=== PATIENT | female | born 1960 | race Caucasian/White ===

== ENCOUNTER 2017-12-12 06:31 | Emergency (ER) | payer OTHER ==
[~2017-12-12] VITALS: Ht 162.6 cm; Wt 68.0 kg
[~2017-12-12 06:31] MED LIST: CALCIUM CITRATE1 TA1 PO; CHROMIUM PO; CIPRO500 MG PO; FLO4 PO; JANUVIA100 M1 PO; LAC PO; LANTUS SOLOS100 U/M1 SC; LORAZEPAM0.5 MG PO; LOVASTATIN20 MG PO; METFORMIN HCL1000 MG PO; NOR10T PO; PRENATAL PLUS1 TA2 PO; PREVACID SOLUTA15 MG PO; PYRIDIUM200 MG PO; TIZANIDINE HCL4 MG PO; TRAMADOL HCL50 MG PO; VITAMIN D32000 I2 PO; ZOLOFT100 MG PO
[2017-12-12 07:24] LABS: BASOPHIL % 0.3 % (0-2); PLATELET COUNT 195 x10^3mcL (130-400); RED CELL DISTRIBUTION WIDTH 14.8 % (11.5-14.5)
[2017-12-12 07:49] LABS: CALCIUM 8.8 mg/dL (8.5-10.1); CHLORIDE SERUM 102 mmol/L (98-107); CREATININE SERUM 0.9 mg/dL (0.6-1.0); GFR1 > 60 mL/min; GLUCOSE SERUM 144 mg/dL (74-106); POTASSIUM SERUM 4.7 mmol/L (3.5-5.1); SODIUM SERUM 138 mmol/L (136-145)
[2017-12-12 07:53] LABS: ALKALINE PHOSPHATASE 93 U/L (46-116); ALT/SGPT 54 U/L (14-59); AST/SGOT 16 U/L (15-37); BILIRUBIN TOTAL 0.12 mg/dL (0.20-1.00); LIPASE 258 IU/L (73-393); TOTAL PROTEIN, SERUM 7.1 g/dL (6.4-8.2)
[2017-12-12 07:54] LABS: ALBUMIN 3.2 g/dL (3.4-5.0)
[2017-12-12 09:53] VITALS: BP 104/58
== END 2017-12-12 10:27 | disposition home or self-care (01) ==
LOC: ED 06:31
PROVIDERS: Emergency Medicine
DX: R51 Headache (principal); E86.0 Dehydration; R53.1 Weakness; R11.2 Nausea with vomiting, unspecified; M54.2 Cervicalgia; M54.9 Dorsalgia, unspecified; H53.149 Visual discomfort, unspecified; R42 Dizziness and giddiness; M79.1 Myalgia; I10 Essential (primary) hypertension; E11.9 Type 2 diabetes mellitus without complications
CPT/HCPCS: J1200; J2765; J7030; Q0092

== ENCOUNTER 2018-11-26 07:52 | Emergency (ER) | payer OTHER ==
[~2018-11-26] VITALS: Ht 154.9 cm; Wt 72.1 kg
[2018-11-26 07:56] VITALS: Ht 154.9 cm; Wt 72.1 kg
[2018-11-26 08:35] LABS: UA SPECIFIC GRAVITY 1.025 (1.005-1.035); microscopic required? YES; urine erythrocyte TRACE (NEGATIVE)
[2018-11-26 08:40] LABS: BASOPHIL % 0.3 % (0-2); PLATELET COUNT 249 x10^3mcL (130-400); RED CELL DISTRIBUTION WIDTH 14.5 % (11.5-14.5)
[2018-11-26 09:05] LABS: CALCIUM 9.1 mg/dL (8.5-10.1); CARBON DIOXIDE 26.8 mmol/L (21-32); CHLORIDE SERUM 103 mmol/L (98-107); CREATININE SERUM 0.8 mg/dL (0.6-1.0); GFR1 > 60 mL/min; GLUCOSE SERUM 140 mg/dL (74-106); POTASSIUM SERUM 4.1 mmol/L (3.5-5.1); SODIUM SERUM 141 mmol/L (136-145)
[2018-11-26 09:09] LABS: ALBUMIN 3.5 g/dL (3.4-5.0); ALKALINE PHOSPHATASE 91 U/L (46-116); ALT/SGPT 47 U/L (14-59); AST/SGOT 18 U/L (15-37); BILIRUBIN TOTAL 0.2 mg/dL (0.20-1.00); LIPASE 216 IU/L (73-393); TOTAL PROTEIN, SERUM 7.6 g/dL (6.4-8.2)
[2018-11-26 11:12] VITALS: BP 111/57
== END 2018-11-26 11:12 | disposition home or self-care (01) ==
LOC: ED 07:52
PROVIDERS: Emergency Medicine
DX: K57.90 Diverticulosis of intestine, part unspecified, without perforation or abscess without bleeding (principal); I10 Essential (primary) hypertension; E11.9 Type 2 diabetes mellitus without complications; F32.9 Major depressive disorder, single episode, unspecified; F41.9 Anxiety disorder, unspecified; M79.7 Fibromyalgia; G43.909 Migraine, unspecified, not intractable, without status migrainosus; Z87.442 Personal history of urinary calculi; Z88.8 Allergy status to other drugs, medicaments and biological substances
CPT/HCPCS: J1885; J2405

== ENCOUNTER 2019-02-01 06:44 | Observation (INO) | payer OTHER ==
[~2019-02-01] VITALS: Ht 154.9 cm; Wt 78.5 kg
[2019-02-01 06:47] VITALS: Ht 154.9 cm; Wt 78.5 kg
--- NOTE | 2019-02-01 07:03 | NUR ---
PT C/O SUDDEN ONSET OF SHARP BILATERAL LOWER QUADRANT RADIATING TO BILATERAL LOWER BACK SINCE O300 AM TODAY WITH NAUSEA, PT DENIES ANY RECENT FEVERS AND/OR ACTIVE BLEEDING AND/OR RECENT TRAUMA AND/OR INJURY. PT DENIES ANY OTHER S/S HOWEVER STS "I HAVE HISTORY OF KIDNEY STONES AND IT FEELS LIEK THE SAME" PT AAOX4, RESPS E/U, PT CRYING WITH FACIAL GRIMACING NOTED, SLIN PINK DRY WARM AND PT AFEBRILE, ABD SOFT TOUND NONDISTENDED HOWEVER TENDER UPON PALPATION
--- NOTE | 2019-02-01 07:04 | NUR ---
PT GOWNED AND PLACED ON FULL CM, NSR
--- NOTE | 2019-02-01 07:08 | NUR ---
MD MAKI AT BEDSIDE PERFORMING MSE
--- NOTE | 2019-02-01 07:08 | NUR ---
PT ALSO STS HX CELIAC DISEASE AND CHRONIC LOWER BACK PAIN
--- NOTE | 2019-02-01 07:10 | NUR ---
PT PROVIDED WARM BLANKET
--- NOTE | 2019-02-01 07:10 | NUR ---
PT PROVIDES VERBAL CONSENT TO ADMIN TORADOL WITHOUT HCG URINE AT THIS TIME. PT VERBALIZED UNDERSTANDING OF RISKS AND SIDE EFFECTS TO TORADOL
--- NOTE | 2019-02-01 07:28 | NUR ---
PT MADE AWARE TO PROVIDE URINE SPECIMEN AVI
[2019-02-01 07:31] LABS: CALCIUM 9.3 mg/dL (8.5-10.1); CARBON DIOXIDE 32.8 mmol/L (21-32); CHLORIDE SERUM 101 mmol/L (98-107); CREATININE SERUM 0.8 mg/dL (0.6-1.0); GFR1 > 60 mL/min; GLUCOSE SERUM 161 mg/dL (74-106); POTASSIUM SERUM 4.2 mmol/L (3.5-5.1); SODIUM SERUM 142 mmol/L (136-145)
--- NOTE | 2019-02-01 07:31 | NUR ---
PT TAKEN TO CT VIA RITIKA, NO FACIAL GRIMACING NOTED, PT NO LONGER CRYING, VSS, RESPS E/U, NSR ON CM
[2019-02-01 07:36] LABS: ALBUMIN 3.7 g/dL (3.4-5.0); ALKALINE PHOSPHATASE 123 U/L (46-116); ALT/SGPT 54 U/L (14-59); AST/SGOT 27 U/L (15-37); BILIRUBIN TOTAL 0.2 mg/dL (0.20-1.00); LIPASE 189 IU/L (73-393); TOTAL PROTEIN, SERUM 7.8 g/dL (6.4-8.2)
[2019-02-01 07:44] LABS: BASOPHIL % 0.1 % (0-2); PLATELET COUNT 292 x10^3mcL (130-400); RED CELL DISTRIBUTION WIDTH 14.1 % (11.5-14.5)
--- NOTE | 2019-02-01 07:48 | NUR ---
PT AMBULATORY WITH STEADY GAIT TO RESTROOM ACCOMPANIED BY HER
--- NOTE | 2019-02-01 08:24 | NUR ---
MD MAKI AT BEDSIDE DISCUSSING PLAN OF CARE
--- NOTE | 2019-02-01 09:10 | NUR ---
MD MAKI AT BEDSIDE DISCUSSING PLAN OF CARE
--- NOTE | 2019-02-01 09:11 | NUR ---
PT AND PT SPOUSE AWARE OF NPO STATUS
--- NOTE | 2019-02-01 09:27 | NUR ---
PT IN NAD TALKING ON HER PHONE, RESPS E/U, VSS, NSR ON CM, CALL LIGHT WITHIN REACH
--- NOTE | 2019-02-01 10:27 | NUR ---
PT REQUESTING MORE PAIN MEDICATION FOR 8/10 PAIN, RESPS E/U, VSS, NO FACIAL GRIMACING NOTED, PT CALM IN NAD, WITH AT BEDSIDE
--- NOTE | 2019-02-01 10:29 | NUR ---
MD MAKI MADE AWARE OF PT REQUEST FOR MORE PAIN MEDICATION
--- NOTE | 2019-02-01 10:37 | NUR ---
PT MEDICATED PER MD ORDER, VSS, RESPS E/U, SKIN PINK DRY WARM, NSR ON CM
--- NOTE | 2019-02-01 10:38 | NUR ---
PT PROVIDED PILLOW PER PT REQUEST AND COMFORT
--- NOTE | 2019-02-01 12:17 | NUR ---
REPORT GIVEN TO CARISA TIRADO, MED SURG, PT AAOX4
[2019-02-01 12:31] VITALS: BP 112/67
--- NOTE | 2019-02-01 12:31 | NUR ---
RECEIVED VIA WHEELCHAIR FROM ER, AAOX4. ADMTIS FOR [place] LOWER ABDOMINAL PAIN. DENIES NAUSEA STATED PAIN IS 8/10 ON PAIN SCALE AFTER MORPHINE AND TORADOL GIVEN IN ER. V/S CHECKED STABLE BP 116/66, HR 77, RR 18 O2SAT 94% ON ROOM AIR. S/L TO LAC INTACT. STATED VOIDS FREELY. NO EDEMA TO EXTREAMITIES. CALL LIGHT PLACED WITHIN EASY REACH. SIDERAILS UP X2. PATIENT'S SPOUSE AT BEDSIDE.
--- NOTE | 2019-02-01 12:51 | NUR ---
DOCTOR ISAIAH PAGED FOR ADMISSION ORDER.
--- NOTE | 2019-02-01 14:01 | NUR ---
C/O OF NAUSEA AND PAIN. PATIENT CYRING. MORPHINE 2MG IV AND ZOFRAN 4MG IV GIVEN. NO ADVERSE REACTION NOTED.
[2019-02-01 17:54] VITALS: BP 97/51
--- NOTE | 2019-02-01 18:51 | NUR ---
STATED ABDN PAIN IS TOLERABLE. KEPT NPO. IVF D5 1/2NS AT 75ML/HR INFUSING WELL.
--- NOTE | 2019-02-01 20:00 | NUR ---
RECEIVED PT IN BED, RESTING QUIETLY . ALERT AND ORIENTED. ABLE TO VERBALIZE NEEDS. DENIES HEADACHE/DIZZINESS. RESP. EVEN AND UNLABORED. LUNG SOUNDS CLEAR BILAT. ON ROOM AIR, NO ACUTE DISTRESS NOTED. AFEBRILE AND VITAL SIGNS STABLE. DENIES ABD. PAIN OR ANY DISCOMFORT AT THIS TIME. BS ACTIVE, NO N/V NOTED. HAD X1 SOFT LARGE BM. DR COLON HERE TO SEE PT. ORDERS RECEIVED. ABLE TO AMBULATE TO THE BATHROOM WITH STEADY GAIT. ASSISTED WITH HS CARE. IVF, D51/2NS AT 75ML/HR, INTACT AND INFUSING VIA LAC, SITE CLEAR. CALL LIGHT WITHIN REACH. WILL CONTINUE TO MONITOR.
[2019-02-01 20:39] VITALS: BP 102/60
--- NOTE | 2019-02-01 21:20 | NUR ---
SANDWICH AND JUICE GIVEN TO PT PER DR COLON ORDER, PT TOLERATED WELL. NO N/V NOTED. WILL CONTINUE TO MONITOR.
--- NOTE | 2019-02-02 00:28 | NUR ---
RESTING QUIETLY IN BED, WITH EYES CLOSED, APPEARS ASLEEP, EASILY AROUSABLE. RESP. EVEN AND UNLABORED. NO ACUTE DISTRESS NOTED.CALL LIGHT WITHIN REACH. WILL CONTINUE TO MONITOR.
--- NOTE | 2019-02-02 03:32 | NUR ---
AWAKE, UP TO THE BATHROOM, VOIDED. NO COMPLAINTS NOTED AT THIS TIME. CALL LIGHT WITHIN REACH. WILL CONTINUE TO MONITOR.
--- NOTE | 2019-02-02 04:19 | NUR ---
AWAKE. COMPLAINING OF HEADACHE,5/10, MEDICATED WITH TYLENOL PO ORDERED. WILL CONTINUE TO MONITOR.
[2019-02-02 04:43] VITALS: BP 112/61
--- NOTE | 2019-02-02 06:18 | NUR ---
IV DISCONTINUED. PT TO BE DISCHARGED HOME EARLY THIS AM PER DR COLON. DISCHARGE INSTRUCTIONS GIVEN TO PT AND PT VERBALIZED UNDERSTANDING. AFEBRILE AND VITAL SIGNS STABLE. NO COMPLAINTS NOTED AT THIS TIME. PT WAITING FOR HER TO PICK HER UP.
--- NOTE | 2019-02-02 06:25 | NUR ---
DISCHARGED HOME ORDERED WITH PERSONAL BELONGINGS. ACCOMPANIED BY PT,S .
== END 2019-02-02 06:28 | disposition home or self-care (01) | DRG 390 ==
LOC: ED 06:44 → MU 11:54
PROVIDERS: Emergency Medicine; ADMIT Internal Medicine Pulmonary Disease
DX: K56.609 Unspecified intestinal obstruction, unspecified as to partial versus complete obstruction (principal); E11.9 Type 2 diabetes mellitus without complications; N20.0 Calculus of kidney; I10 Essential (primary) hypertension; M54.9 Dorsalgia, unspecified; G89.29 Other chronic pain; M79.7 Fibromyalgia; F32.9 Major depressive disorder, single episode, unspecified; Z79.891 Long term (current) use of opiate analgesic; Z87.442 Personal history of urinary calculi; Z98.84 Bariatric surgery status
CPT/HCPCS: 82962; 90658; G0378; J1885; J2270; J2405; J7030